=== PATIENT | male | born 1990 | race Caucasian/White ===

== ENCOUNTER 2021-10-30 10:24 | Emergency (ER) | payer MEDICAID, SELFPAY ==
[~2021-10-30] VITALS: Ht 185.4 cm; Wt 81.6 kg
[2021-10-30 10:34] VITALS: BP 126/66
[2021-10-30] MEDS ORDERED: ACETAMINOPHEN EXTRA STRENGTH 500 MG TAB PO ONE (11:00)
--- NOTE | 2021-10-30 11:18 | NUR ---
NOVEL AND FLU SWABS COLLECTED AND WALKED TO LAB
[2021-10-30] MEDS ORDERED: ACET-9800 PO (11:46)
--- NOTE | 2021-10-30 13:21 | NUR ---
Patient discharged with v/s stable. Written and verbal after care instructions given and explained. Patient alert, oriented and verbalized understanding of instructions. Ambulatory with steady gait. All questions addressed prior to discharge. ID band removed. Patient advised to follow up with PMD. Rx of ACETAMINOPHEN given. Opportunity to ask questions provided and answered.
--- NOTE | 2021-10-30 13:29 | NUR ---
LAB CALLED PT FLU B POSOTIVE AND A NEGATIVE.
--- NOTE | 2021-10-30 13:31 | NUR ---
DR CRUZ NOTIFIED.
== END 2021-10-30 13:21 | disposition home or self-care (01) ==
LOC: MED 10:24
DX: J10.1 Influenza due to other identified influenza virus with other respiratory manifestations (principal); Z20.822 Contact with and (suspected) exposure to COVID-19
CPT/HCPCS: 87804; 99283; U0003